=== PATIENT | male | born 1955 | race Caucasian/White ===

== ENCOUNTER 2023-05-03 16:21 | Emergency (ER) | payer SELFPAY ==
[~2023-05-03] VITALS: Ht 170.2 cm; Wt 63.6 kg
[2023-05-03] MEDS ORDERED: lisinopril 10 MG tablet PO ONE (16:55)
[2023-05-03 16:56] VITALS: TEMP 98.6
[2023-05-03] MEDS ORDERED: amLODIPine 5mg tablet PO ONE (17:00)
[2023-05-03 17:54] VITALS: BP 172/92; PULSE 101; RESP 24; O2SAT 95
[2023-05-03] MEDS ORDERED: chlordiazePOXIDE 25mg capsule PO ONE (18:15)
== END 2023-05-03 18:32 ==
LOC: ER 16:22
DX: F10.129 Alcohol abuse with intoxication, unspecified (principal); I10 Essential (primary) hypertension; Y90.9 Presence of alcohol in blood, level not specified
CPT/HCPCS: 93005; 99283